=== PATIENT | female | born 1940 | race Caucasian/White ===

== ENCOUNTER 2017-12-08 05:16 | Inpatient (IN) ==
[2017-12-08] MEDS ORDERED: VANCOMYCIN INJ 1,000 MG in SODIUM CHLORIDE 0.9% 250 ML IV ONE (06:00)
[2017-12-08] MEDS ORDERED: ceFAZolin 1,000 MG in SYRINGE 1 EACH IV ONE (06:00)
[2017-12-08] MEDS ORDERED: ceFAZolin 1,000 MG VIAL ONE (07:12)
[2017-12-08] MEDS ORDERED: VANCOMYCIN 1,000 MG VIAL ONE (07:12)
[2017-12-08] MEDS ORDERED: FAMOTIDINE 20 MG TABLET PO ONE (07:53)
[2017-12-08] MEDS ORDERED: DIAZEPAM 5 MG TABLET PO ONE (07:53)
[2017-12-08] MEDS ORDERED: SCOPOLAMINE 1.5 MG PATCH TRANSDERM ONE ×2 (07:54→08:06)
[2017-12-08] MEDS ORDERED: LACTATED RINGERS 1,000 ML IV SCH (08:00)
[2017-12-08] MEDS ORDERED: DIAZEPAM 5 MG TABLET ONE (08:05)
[2017-12-08] MEDS ORDERED: FAMOTIDINE 20 MG TABLET ONE (08:06)
[2017-12-08] MEDS ORDERED: TRANEXAMIC ACID 1,000 MG/10 ML VIAL ONE (08:45)
[2017-12-08] MEDS ORDERED: diphenhydrAMINE CAP 25 MG CAPSULE PO PRN (08:48)
[2017-12-08] MEDS ORDERED: BISACODYL 10 MG SUPP RECTAL PRN (08:48)
[2017-12-08] MEDS ORDERED: NALOXONE 0.4 MG/ML VIAL IV PRN (08:48)
[2017-12-08] MEDS ORDERED: MORPHINE 4 MG/1 ML VIAL IV PRN (08:48)
[2017-12-08] MEDS ORDERED: LACTULOSE 20 GM/30 ML UDCUP PO PRN (08:48)
[2017-12-08] MEDS ORDERED: TEMAZEPAM 7.5 MG CAPSULE PO PRN (08:48)
[2017-12-08] MEDS ORDERED: PROMETHAZINE 25 MG/1 ML VIAL IM PRN (08:48)
[2017-12-08] MEDS ORDERED: ROPIVACAINE 0.5% 30 ML VIAL ONE ×2 (10:16→10:17)
[2017-12-08] MEDS ORDERED: MORPHINE PCA 30 MG/30 ML SYRINGE IV ONE (10:35)
[2017-12-08] MEDS ORDERED: PROPOFOL 200 MG/20 ML VIAL IV ONE (10:57)
[2017-12-08] MEDS ORDERED: ePHEDrine 50 MG/ML AMP ONE (10:58)
[2017-12-08] MEDS ORDERED: PROMETHAZINE 25 MG/1 ML VIAL ONE (10:58)
[2017-12-08] MEDS ORDERED: ONDANSETRON 4 MG/2 ML VIAL ONE (10:58)
[2017-12-08] MEDS ORDERED: MIDAZOLAM 2 MG/2 ML VIAL ONE (10:58)
[2017-12-08] MEDS ORDERED: DEXAMETHASONE 10 MG/1 ML VIAL ONE (10:58)
[2017-12-08] MEDS ORDERED: SODIUM CHLORIDE 0.9% 100 ML IV ONE (10:59)
[2017-12-08] MEDS ORDERED: ACETAMINOPHEN 1,000 MG/100 ML VIAL IV ONE (10:59)
[2017-12-08] MEDS ORDERED: SODIUM CHLORIDE 0.9% 250 ML IV ONE (10:59)
[2017-12-08] MEDS ORDERED: PHENYLEPHRINE 1 MG/10 ML SYRINGE IV ONE (10:59)
[2017-12-08] MEDS ORDERED: LACTATED RINGERS 1,000 ML IV ONE (10:59)
[2017-12-08] MEDS: MORPHINE PCA 30 MG/30 ML SYRINGE IV SCH (11:15)
[2017-12-08] MEDS ORDERED: MORPHINE 10 MG/1 ML VIAL IV PRN (11:59)
[2017-12-08] MEDS: PANTOPRAZOLE 40 MG TABLET PO SCH (12:26)
[2017-12-08] MEDS: DOCUSATE SODIUM 100 MG CAPSULE PO SCH ×2 (12:26→20:41)
[2017-12-08 12:51] LABS: Basophils % 0.3 % (0.0-0.8); Eosinophils % 0.1 % (0.00-10.9); Hematocrit 38.6 VOL% (35.7-47.0); Hemoglobin 12.8 GM/DL (12.0-16.0); Immature Granulocytes % 0.4 %; Immature Granulocytes Absolute 0.03 #; Lymphocytes % 13.8 % (21.3-54.2); Mean Corpuscular HGB Conc 33.2 GM/DL (32-36); Mean Corpuscular Hemoglobin 31 PG (27-34); Mean Corpuscular Volume 94.8 FL (87-102); Mean Platelet Volume 11.1 FL (9.6-12.0); Monocytes # 0.2 10*3/uL (0.11-0.8); Monocytes % 2.2 % (1.7-12.7); Neutrophils # 5.8 10*3/uL (1.4-7.4); Neutrophils % 83.2 % (38.7-73.9); Platelet Count 240 T/CUMM (130-400); Red Blood Count 4.07 MC/CUMM (3.8-5.5); Red Cell Distribution Width 13.9 % (9.3-17.3)
[2017-12-08 13:23] LABS: Calcium 8.7 MG/DL (8.5-10.1); Osmolality,Calculated 292.4 MOS/KG (273-304); Potassium 3.9 MMOL/L (3.5-5.1)
[2017-12-08] MEDS: ceFAZolin 1,000 MG in SYRINGE 1 EACH IV SCH (17:30)
[2017-12-08] MEDS: FONDAPARINUX 2.5 MG/0.5 ML SYRINGE SUBCUT SCH (20:41)
[2017-12-09] MEDS: ceFAZolin 1,000 MG in SYRINGE 1 EACH IV SCH (00:22)
[2017-12-09] MEDS: ONDANSETRON 4 MG/2 ML VIAL IV PRN ×3 (03:23→16:10)
[2017-12-09 06:25] LABS: Basophils % 0.2 % (0.0-0.8); Hematocrit 30.5 VOL% (35.7-47.0); Immature Granulocytes % 0.4 %; Immature Granulocytes Absolute 0.05 #; Lymphocytes # 1.7 10*3/uL (1.4-4.0); Lymphocytes % 15.1 % (21.3-54.2); Mean Corpuscular HGB Conc 32.1 GM/DL (32-36); Mean Corpuscular Hemoglobin 30 PG (27-34); Mean Corpuscular Volume 94.7 FL (87-102); Mean Platelet Volume 11.5 FL (9.6-12.0); Monocytes # 1.2 10*3/uL (0.11-0.8); Monocytes % 10.4 % (1.7-12.7); Neutrophils # 8.4 10*3/uL (1.4-7.4); Neutrophils % 73.9 % (38.7-73.9); Platelet Count 213 T/CUMM (130-400)
[2017-12-09 06:30] LABS: Hemoglobin 9.8 GM/DL (12.0-16.0); Red Blood Count 3.22 MC/CUMM (3.8-5.5); White Blood Count 11.3 T/CUMM (4-12)
[2017-12-09 06:33] LABS: Osmolality,Calculated 284.1 MOS/KG (273-304)
[2017-12-09] MEDS: PANTOPRAZOLE 40 MG TABLET PO SCH (08:49)
[2017-12-09] MEDS: DOCUSATE SODIUM 100 MG CAPSULE PO SCH ×2 (08:49→20:39)
[2017-12-09] MEDS: MORPHINE PCA 30 MG/30 ML SYRINGE IV SCH (10:30)
[2017-12-09] MEDS: FONDAPARINUX 2.5 MG/0.5 ML SYRINGE SUBCUT SCH (20:39)
[2017-12-10] MEDS: MAGNESIUM HYDROXIDE SUSP 30 ML UDCUP PO PRN (06:54)
[2017-12-10 07:06] LABS: Basophils % 0.2 % (0.0-0.8); Eosinophils % 0.1 % (0.00-10.9); Hematocrit 30.2 VOL% (35.7-47.0); Immature Granulocytes % 0.4 %; Immature Granulocytes Absolute 0.05 #; Lymphocytes # 1.5 10*3/uL (1.4-4.0); Lymphocytes % 12.8 % (21.3-54.2); Mean Corpuscular HGB Conc 33.1 GM/DL (32-36); Mean Corpuscular Hemoglobin 31 PG (27-34); Mean Corpuscular Volume 93.8 FL (87-102); Mean Platelet Volume 11.2 FL (9.6-12.0); Monocytes # 1.4 10*3/uL (0.11-0.8); Monocytes % 11.4 % (1.7-12.7); Neutrophils # 8.9 10*3/uL (1.4-7.4); Neutrophils % 75.1 % (38.7-73.9); Platelet Count 203 T/CUMM (130-400); Red Blood Count 3.22 MC/CUMM (3.8-5.5); Red Cell Distribution Width 13.8 % (9.3-17.3); White Blood Count 11.8 T/CUMM (4-12)
[2017-12-10] MEDS: PANTOPRAZOLE 40 MG TABLET PO SCH (08:32)
[2017-12-10] MEDS: DOCUSATE SODIUM 100 MG CAPSULE PO SCH ×2 (08:32→20:42)
[2017-12-10] MEDS: ONDANSETRON 4 MG TABLET PO PRN ×2 (10:13→18:02)
[2017-12-11] MEDS: ONDANSETRON 4 MG/2 ML VIAL IV PRN (03:26)
[2017-12-11 06:57] LABS: Basophils % 0.2 % (0.0-0.8); Eosinophils % 0.3 % (0.00-10.9); Hematocrit 30.8 VOL% (35.7-47.0); Immature Granulocytes % 0.3 %; Immature Granulocytes Absolute 0.03 #; Lymphocytes # 1.8 10*3/uL (1.4-4.0); Lymphocytes % 16.2 % (21.3-54.2); Mean Corpuscular HGB Conc 32.5 GM/DL (32-36); Mean Corpuscular Hemoglobin 31 PG (27-34); Mean Corpuscular Volume 94.8 FL (87-102); Mean Platelet Volume 10.8 FL (9.6-12.0); Monocytes # 1.1 10*3/uL (0.11-0.8); Monocytes % 9.8 % (1.7-12.7); Neutrophils # 8.1 10*3/uL (1.4-7.4); Neutrophils % 73.2 % (38.7-73.9); Platelet Count 217 T/CUMM (130-400); Red Blood Count 3.25 MC/CUMM (3.8-5.5); Red Cell Distribution Width 13.8 % (9.3-17.3); White Blood Count 11.1 T/CUMM (4-12)
[2017-12-11] MEDS: PANTOPRAZOLE 40 MG TABLET PO SCH (10:17)
[2017-12-11] MEDS: DOCUSATE SODIUM 100 MG CAPSULE PO SCH ×2 (10:17→22:30)
[2017-12-11] MEDS: ONDANSETRON 4 MG TABLET PO PRN (15:04)
[2017-12-11] MEDS ORDERED: DILTIAZEM 50 MG/10 ML VIAL IV ONE (17:26)
[2017-12-11] MEDS ORDERED: DILTIAZEM INJ 100 MG in SODIUM CHLORIDE 0.9% 100 ML IV SCH (17:30)
[2017-12-11 17:57] LABS: Calcium 8.1 MG/DL (8.5-10.1); Osmolality,Calculated 280.7 MOS/KG (273-304); Potassium 3.8 MMOL/L (3.5-5.1)
[2017-12-12 05:01] LABS: Basophils % 0.3 % (0.0-0.8); Eosinophils # 0.1 10*3/uL (0.0-0.87); Eosinophils % 1.1 % (0.00-10.9); Hematocrit 27.3 VOL% (35.7-47.0); Hemoglobin 8.7 GM/DL (12.0-16.0); Immature Granulocytes % 0.3 %; Immature Granulocytes Absolute 0.03 #; Lymphocytes # 2.1 10*3/uL (1.4-4.0); Lymphocytes % 20.9 % (21.3-54.2); Mean Corpuscular HGB Conc 31.9 GM/DL (32-36); Mean Corpuscular Hemoglobin 31 PG (27-34); Mean Corpuscular Volume 96.1 FL (87-102); Mean Platelet Volume 10.5 FL (9.6-12.0); Monocytes # 1.2 10*3/uL (0.11-0.8); Neutrophils # 6.5 10*3/uL (1.4-7.4); Neutrophils % 65.4 % (38.7-73.9); Platelet Count 207 T/CUMM (130-400); Red Blood Count 2.84 MC/CUMM (3.8-5.5); Red Cell Distribution Width 13.7 % (9.3-17.3); White Blood Count 9.9 T/CUMM (4-12)
[2017-12-12 05:15] LABS: Calcium 7.8 MG/DL (8.5-10.1); Osmolality,Calculated 284.1 MOS/KG (273-304); Potassium 4.1 MMOL/L (3.5-5.1)
[2017-12-12] MEDS: DOCUSATE SODIUM 100 MG CAPSULE PO SCH ×2 (10:19→21:27)
[2017-12-12] MEDS: METOPROLOL SUCCINATE XL 25 MG TABLET PO SCH (10:20)
[2017-12-12] MEDS: PANTOPRAZOLE 40 MG TABLET PO SCH (10:29)
[2017-12-12] MEDS: DILTIAZEM 60 MG TABLET PO SCH ×2 (17:00→22:42)
[2017-12-12] MEDS: ONDANSETRON 4 MG TABLET PO PRN (21:28)
[2017-12-13] MEDS ORDERED: DILTIAZEM 100 MG VIAL.ADD IV ONE (00:15)
[2017-12-13] MEDS: DILTIAZEM INJ 100 MG in SODIUM CHLORIDE 0.9% 100 ML IV SCH (00:23)
[2017-12-13 03:49] LABS: Basophils % 0.3 % (0.0-0.8); Eosinophils # 0.3 10*3/uL (0.0-0.87); Eosinophils % 3.4 % (0.00-10.9); Hematocrit 27.1 VOL% (35.7-47.0); Immature Granulocytes % 0.5 %; Immature Granulocytes Absolute 0.04 #; Lymphocytes # 2.5 10*3/uL (1.4-4.0); Lymphocytes % 28.7 % (21.3-54.2); Mean Corpuscular HGB Conc 33.2 GM/DL (32-36); Mean Corpuscular Hemoglobin 31 PG (27-34); Mean Corpuscular Volume 93.1 FL (87-102); Mean Platelet Volume 10.3 FL (9.6-12.0); Monocytes % 11.7 % (1.7-12.7); Neutrophils # 4.9 10*3/uL (1.4-7.4); Neutrophils % 55.4 % (38.7-73.9); Platelet Count 263 T/CUMM (130-400); Red Blood Count 2.91 MC/CUMM (3.8-5.5); Red Cell Distribution Width 13.7 % (9.3-17.3); White Blood Count 8.8 T/CUMM (4-12)
[2017-12-13 04:28] LABS: Osmolality,Calculated 287.8 MOS/KG (273-304); Potassium 3.8 MMOL/L (3.5-5.1)
[2017-12-13] MEDS: DILTIAZEM 60 MG TABLET PO SCH ×4 (05:54→22:53)
[2017-12-13] MEDS: MAGNESIUM HYDROXIDE SUSP 30 ML UDCUP PO PRN (09:01)
[2017-12-13] MEDS: DOCUSATE SODIUM 100 MG CAPSULE PO SCH ×2 (10:11→20:34)
[2017-12-13] MEDS: METOPROLOL SUCCINATE XL 25 MG TABLET PO SCH (10:11)
[2017-12-13] MEDS: PANTOPRAZOLE 40 MG TABLET PO SCH (10:12)
[2017-12-13] MEDS: ONDANSETRON 4 MG TABLET PO PRN (21:55)
[2017-12-14] MEDS: DILTIAZEM INJ 100 MG in SODIUM CHLORIDE 0.9% 100 ML IV SCH (00:07)
[2017-12-14 04:10] LABS: Basophils % 0.4 % (0.0-0.8); Eosinophils # 0.4 10*3/uL (0.0-0.87); Eosinophils % 4.8 % (0.00-10.9); Hematocrit 26.2 VOL% (35.7-47.0); Hemoglobin 8.6 GM/DL (12.0-16.0); Immature Granulocytes % 0.3 %; Immature Granulocytes Absolute 0.02 #; Lymphocytes # 2.7 10*3/uL (1.4-4.0); Lymphocytes % 34.3 % (21.3-54.2); Mean Corpuscular HGB Conc 32.8 GM/DL (32-36); Mean Corpuscular Hemoglobin 31 PG (27-34); Mean Corpuscular Volume 93.6 FL (87-102); Mean Platelet Volume 10.2 FL (9.6-12.0); Monocytes # 0.9 10*3/uL (0.11-0.8); Monocytes % 11.3 % (1.7-12.7); Neutrophils # 3.9 10*3/uL (1.4-7.4); Neutrophils % 48.9 % (38.7-73.9); Platelet Count 265 T/CUMM (130-400); Red Cell Distribution Width 13.5 % (9.3-17.3); White Blood Count 7.9 T/CUMM (4-12)
[2017-12-14 04:20] LABS: Osmolality,Calculated 278.5 MOS/KG (273-304)
[2017-12-14] MEDS: DILTIAZEM 60 MG TABLET PO SCH ×4 (05:38→23:48)
[2017-12-14] MEDS: METOPROLOL SUCCINATE XL 25 MG TABLET PO SCH (09:32)
[2017-12-14] MEDS: DOCUSATE SODIUM 100 MG CAPSULE PO SCH ×2 (09:32→21:46)
[2017-12-14] MEDS: MAGNESIUM HYDROXIDE SUSP 30 ML UDCUP PO PRN ×2 (09:39→23:49)
[2017-12-14] MEDS: PANTOPRAZOLE 40 MG TABLET PO SCH (10:02)
[2017-12-14] MEDS: ONDANSETRON 4 MG TABLET PO PRN (21:45)
[2017-12-15] MEDS: DILTIAZEM INJ 100 MG in SODIUM CHLORIDE 0.9% 100 ML IV SCH (00:01)
[2017-12-15] MEDS: ONDANSETRON 4 MG TABLET PO PRN ×2 (01:50→08:16)
[2017-12-15] MEDS: DILTIAZEM 60 MG TABLET PO SCH ×2 (05:59→11:08)
[2017-12-15] MEDS: PANTOPRAZOLE 40 MG TABLET PO SCH ×2 (08:16→08:18)
[2017-12-15] MEDS: METOPROLOL SUCCINATE XL 25 MG TABLET PO SCH (08:16)
[2017-12-15] MEDS: DOCUSATE SODIUM 100 MG CAPSULE PO SCH (08:16)
[2017-12-15 11:55] VITALS: BP 112/57
== END 2017-12-15 15:13 | disposition home health service (06) | DRG 470 ==
LOC: N.OR 05:16 → N.SDSINP 05:21 → N.3E 08:49 → N.TELEN 12-11 17:49
PROVIDERS: ADMIT Orthopaedic Surgery; ATTEND Orthopaedic Surgery